=== PATIENT | female | born 1945 | race Caucasian/White ===

== ENCOUNTER 2025-01-09 14:33 | Outpatient (CLI) | payer MEDICARE, OTHER | END 2025-01-09 14:34 | disposition home or self-care (01) | LOC: CSHMAMMO 14:33 | PROVIDERS: ATTEND Family Medicine | DX: M81.0 Age-related osteoporosis without current pathological fracture (principal); M85.852 Other specified disorders of bone density and structure, left thigh | CPT/HCPCS: 77080 ==

== ENCOUNTER 2025-04-19 09:30 | Outpatient (CLI) | payer MEDICARE, OTHER | END 2025-04-19 09:31 | disposition home or self-care (01) | LOC: CSHSLEEP 09:30 | PROVIDERS: ATTEND Family Medicine | DX: G47.33 Obstructive sleep apnea (adult) (pediatric) (principal); E11.9 Type 2 diabetes mellitus without complications; E66.9 Obesity, unspecified; Z68.36 Body mass index [BMI] 36.0-36.9, adult; I10 Essential (primary) hypertension; R09.02 Hypoxemia | CPT/HCPCS: 95800 ==